=== PATIENT | male | born 1965 | race Caucasian/White ===

== ENCOUNTER 2018-07-28 12:16 | Outpatient (CLI) | payer OTHER ==
[~2018-07-28 12:16] MED LIST: ALBU8.5H8 INH; ASPI-1265 PO; ATOR10TA87 PO; CARV-50 PO; DULA1.5P SQ; FENO90CA PO; FURO40TA4 PO; INSU100C10 SQ; INSU300I SQ; LEVO50TA PO; LISI-600 PO; POTA20TA19 PO
== END 2018-07-28 23:59 | disposition home or self-care (01) ==
LOC: VAS 12:16
PROVIDERS: ATTEND Orthopaedic Surgery Hand Surgery
DX: M79.89 Other specified soft tissue disorders (principal); M25.562 Pain in left knee; R60.0 Localized edema; I25.2 Old myocardial infarction; I11.0 Hypertensive heart disease with heart failure; I50.9 Heart failure, unspecified; J44.9 Chronic obstructive pulmonary disease, unspecified; E11.9 Type 2 diabetes mellitus without complications; F17.200 Nicotine dependence, unspecified, uncomplicated; Z98.890 Other specified postprocedural states
CPT/HCPCS: 93970